=== PATIENT | male | born 1950 | race Caucasian/White ===

== ENCOUNTER → 2020-02-24 14:44 | Outpatient (CLI) | payer MEDICARE, SELFPAY ==
--- NOTE | ~2020-02-24 | XR_ITS ---
EXAMINATION: XR chest 2V DATE: 02/24/2020 15:11 INDICATION: Chest congestion. TECHNIQUE: Frontal and lateral views of the chest were obtained on 4 radiographs. COMPARISON: None. FINDINGS: The chest demonstrates clear lungs without pneumonia, pleural effusion, or pneumothorax. Th e heart size is normal. IMPRESSION: 1. No acute cardiopulmonary disease. Reviewed, dictated and finalized at location B.
== END ==
PROVIDERS: PCP Internal Medicine; Visit Provider Internal Medicine
DX: R09.89 Other specified symptoms and signs involving the circulatory and respiratory systems (principal)
CPT/HCPCS: 71046

== ENCOUNTER → 2021-10-09 13:12 | Outpatient (CLI) | payer MEDICARE, SELFPAY ==
--- NOTE | ~2021-10-09 | XR_ITS ---
XR lumbar spine 2-3V DATE: 10/09/2021 13:44 INDICATION: Back pain TECHNIQUE: AP, lateral, coned lateral lumbosacral views COMPARISON: None FINDINGS: Minimal levoscoliosis of the lumbar spine. There is diffuse osteopenia. There is degenerative spurring of the lower thoracic spine. As mild degenerative disc disease at L1-2 and L2-3. There is moderately severe degenerative disc disease at L3-4, L4-5 and L5-S1. There is degenerative change at the apophyseal joints with associated grade 1 anterolisthesis at L3-4 . No fracture or bone destruction is detected. Included lower thoracic and lumbar pedicles are intact. Normal sacroiliac joints. IMPRESSION: Minimal levoscoliosis of lumbar spine Osteopenia Multilevel degenerative disc disease, most pronounced at L3-4, L4-5 and L5-S1 Degenerative changes of apophyseal joints with associated grade 1 anterolisthesis at L3-4 Reviewed, dictated and finalized at location A. IMPRESSION: Minimal levoscoliosis of lumbar spine Osteopenia Multilevel degenerative disc disease, most pronounced at L3-4, L4-5 and L5-S1 Degenerative changes of apophyseal joints with associated grade 1 anterolisthes is at L3-4
== END ==
PROVIDERS: PCP Internal Medicine; Visit Provider Internal Medicine
DX: M85.88 Other specified disorders of bone density and structure, other site (principal); M51.37 Other intervertebral disc degeneration, lumbosacral region
CPT/HCPCS: 72100

== ENCOUNTER 2023-09-19 13:25 | Outpatient (CLI) | payer MEDICARE, SELFPAY ==
--- NOTE | ~2023-09-19 | CT_ITS ---
EXAMINATION: CT lung screening DATE: 09/19/2023 13:54 INDICATION: Personal history of nicotine dependence, prior smoker with 60 pack year history TECHNIQUE: Computed tomography (CT) of the chest was performed without intravenous contrast. The dose -length product (DLP) was 118.22 mGy-cm. Automated exposure control and iterative reconstruction tech nique were employed. COMPARISON: None FINDINGS: There is moderate emphysema. There are scattered small nodules of the lungs. The largest me asures 2 mm in the left lung apex. The lungs are free of acute opacities. No pleural effusion or pneu mothorax. No pathologically enlarged thoracic lymph nodes are identified. The heart size is normal. C alcified coronary artery atherosclerosis is noted. There is moderate thoracic spondylosis. IMPRESSION: 1. Lung-RADS category 2: Benign appearance or behavior. Continue annual screening with noncontrast lo w-dose chest CT in 12 months. Reviewed, dictated and finalized at location L. TLE BUILDER IMPRESSION: 1. Lung-RADS category 2: Benign appearance or behavior. Continue annual screeni ng with noncontrast low-dose chest CT in 12 months.
== END 2023-09-19 13:26 | disposition home or self-care (01) ==
PROVIDERS: PCP Emergency Medicine; Visit Provider Emergency Medicine
DX: Z12.2 Encounter for screening for malignant neoplasm of respiratory organs (principal); Z87.891 Personal history of nicotine dependence
CPT/HCPCS: 71271

== ENCOUNTER 2024-02-26 13:04 | Outpatient (CLI) | payer MEDICARE, SELFPAY ==
--- NOTE | ~2024-02-26 | MR_ITS ---
EXAMINATION: MR lumbar spine wo con DATE: 02/26/2024 13:35 INDICATION: Low back pain. Right leg pain and numbness. TECHNIQUE: Magnetic resonance imaging (MRI) of the lumbar spine was performed without intravenous con trast. Sequences included sagittal T2-weighted FSE, sagittal T2-weighted FS FSE, sagittal T1-weighted FSE, and axial T2-weighted FSE. COMPARISON: Lumbar spine radiographs 10/09/2021 FINDINGS: There is 7 degrees levocurvature of lumbar spine. There is 4 mm anterolisthesis of L3 on L4 . There is mild chronic anterior wedging of T11, T12, L3, and L4 vertebral bodies. There is mildly de creased disc height at L1-L2 and L2-L3 and severely decreased disc height from L3-L4 through L5-S1. T he distal spinal cord signal intensity is normal. The conus medullaris is at T12. The bladder is deb edly distended. The following disc levels are specifically discussed: L1-L2: The disc is bulging and has an annular fissure. There is severe bilateral facet joint osteoart hritis. There is mild bilateral neural foraminal stenosis. There is mild central canal stenosis. L2-L3: The disc is bulging. There is severe bilateral facet joint osteoarthritis. There is mild bilat eral neural foraminal stenosis. There is mild central canal stenosis. L3-L4: The disc is bulging. There is severe bilateral facet joint osteoarthritis. There is moderate b ilateral neural foraminal stenosis. There is severe central canal stenosis. L4-L5: The disc is bulging and has an annular fissure. There is severe bilateral facet joint osteoart hritis. There is moderate bilateral neural foraminal stenosis. There is mild central canal stenosis. L5-S1: The disc is bulging and has an annular fissure. There is severe bilateral facet joint osteoart hritis. There is moderate bilateral neural foraminal stenosis. There is mild central canal stenosis. IMPRESSION: 1. Severe lumbar spondylosis. Reviewed, dictated and finalized at location A.
== END 2024-02-26 13:05 | disposition home or self-care (01) ==
LOC: ANHIMG 13:07
PROVIDERS: PCP Emergency Medicine; Visit Provider Emergency Medicine
DX: R29.898 Other symptoms and signs involving the musculoskeletal system (principal); M47.896 Other spondylosis, lumbar region
CPT/HCPCS: 72148

== ENCOUNTER 2024-04-01 14:07 | Outpatient (CLI) | payer MEDICARE, SELFPAY | END 2024-04-01 14:08 | disposition home or self-care (01) | LOC: ANHAUDIO 14:07 | PROVIDERS: PCP Emergency Medicine; Visit Provider Nurse Practitioner Family | DX: H90.3 Sensorineural hearing loss, bilateral (principal) | CPT/HCPCS: 92557; 92567 ==

== ENCOUNTER 2024-04-07 14:45 | Outpatient (RCR) | payer MEDICARE, SELFPAY ==
--- NOTE | 2024-03-12 14:26 | OPREHPOC ---
Outpatient Therapy Plan of Care This is a Multidisciplinary Plan of Care that may contain components documented by all disciplines (PT, OT, and ST.) PT Problem 1 PT Problem #1 Knowledge Deficit PT Goal 1 Goal / Goal Update Pt to be IND with issued HEP . Target Visit 4 PT Problem 2 PT Problem #2 Pain PT Goal 1 Goal / Goal Update Pt to report pain no greater than 3/10 in the last week. Target Visit 8 PT Goal 2 Goal / Goal Update Pt to report 75% improvement in overall symptoms. Target Visit 8 PT Problem 3 PT Problem #3 Impaired Gait PT Goal 1 Goal / Goal Update Pt to be able to ambulate around the grocery store without the need for a rest break. Target Visit 8 PT Goal 2 Goal / Goal Update Pt to ambulate with upright trunk posture. Target Visit 8 PT Problem 4 PT Problem #4 Impaired Range of Motion PT Goal 1 Goal / Goal Update Pt to improve passive hip extension ROM to 10 deg to improve stride length Target Visit 8 PT Goal 2 Goal / Goal Update Pt to improve hip int rot ROM to 15 deg Target Visit 10
--- NOTE | 2024-03-12 14:26 | PTOPEVAL1 ---
Assessment and note entered by Ayanna Boyce, PT, DPT Evaluation Information Assessment Status Evaluation Diagnosis lumbar spondylosis ICD-10 Condition Codes (PT) Pain in low back M54.50 Subjective Information Pt states he has at least some degree of back pain every day. He states at times his R leg will go completely numb without an increase in pain. He states when this happens his leg goes numb and it causes him to fall, about 4 times in the last 6 months. He states if he stands or walks for too long his back will start to hurt and he can feel the numbness increase. He states he goes to sit down and this helps to increase the strength and relieve the numbness. Pt has a partial discectomy ~30 years ago. Reported Pain Level Pain Score 6: Self Report Assessment PT Clinical Summary Pt presents to therapy today for his initial evaluation with a diagnosis of lumbar spondylosis. Today he demonstrates decreased lumbar mobility in all directions as well as decreased hip extension and int rot. He demonstrates good LE strength aside from hip abduction, he also has core weakness. Pt ambulates with a flexed hips and trunk hyperextension, likely d/t his limited hip extension ROM. Skilled therapy services are indicated to improve hip and trunk mobility, improve body mechanics, and to improve standing/ walking tolerance. Plan of Care Interventions Electrical Stimulation,Gait Training,Hot Pack/Cold Pack,Manual Therapy,Mechanical Traction,Neuro Re- education,Patient/Caregiver Educati,Therapeutic Activities,Therapeutic Exercise PT Services Indicated Yes Treatment Frequency and 2x/wk for 8 visits Duration These treatments will address the objective and functional deficits as defined above. The patient will be advanced safely and appropriately in order for the patient to progress towards his/her prior level of function. Additional exercises will be introduced and as well as a comprehensive home exercise program upon discharge, if needed, ?to ensure carryover of functional gains achieved in the clinic. This treatment plan has been reviewed and agreement upon by the patient.
--- NOTE | 2024-04-07 15:35 | PTOPDC ---
Assessment and note entered by Ayanna Boyce, PT, DPT Evaluation Information Assessment Status Discharge Diagnosis lumbar spondylosis ICD-10 Condition Codes (PT) Pain in low back M54.50 Subjective Information Pt states standing for too long, walking too far, or bending over all increases his pain. He states he does his exercises, but has been doing them in the evening. He states he is becoming more aware of his positioning when he is bending and twisting . He states changing his position and trying to be aware of his posture does not change his pain. He states his pain at rest is 0/10 and 10/10 at the worst. Reported Pain Level Pain Score 0: Self Report Assessment PT Clinical Summary Pt presents to therapy today for his progress report following 8n visits of skilled therapy to treat his diagnosis of lumbar spondylosis. Today he demonstrates improved hip ROM but still has pain that limited lumbar ROM. He reports minimal improvements with therapy, he states he plans to continue his HEP upon discharge until he gets back into see his doctors. Demonstrates good body mechanics with cueing. Plan of Care PT Services Indicated Yes
== END 2024-04-08 07:49 | disposition home or self-care (01) ==
LOC: ANHGOSHPT 14:45
PROVIDERS: PCP Emergency Medicine; Visit Provider Emergency Medicine
DX: M47.16 Other spondylosis with myelopathy, lumbar region (principal)
CPT/HCPCS: 97110; 97161; 97530

== ENCOUNTER 2024-04-24 13:08 | Outpatient (CLI) | payer MEDICARE, SELFPAY ==
--- NOTE | 2024-04-27 08:54 | WPDPFTINT ---
PFT Procedure Performed PFT Procedure Performed Spirometry with Pre/Post Bronchodilator Plethysmography (Lung Vol) Diffusing Cap (DLCO) Flow Vol Loop PFT Interpretation Lung volumes were measured with the body plethysmography method. Lung volumes are unremarkable. Spirometry showed diminished expiratory flow rates and a diminished FEV1 to FVC ratio 61%, indicative of obstructive airway disease. Following administration of a bronchodilator there was no significant increase in expiratory flow rates. Lung diffusion capacity is mildly reduced at 64% predicted. The diminished lung diffusion capacity coupled with the diminished alveolar volume and a normal DLCO/VA ratio indicates loss of alveolar capillary stricture as seen in emphysema or interstitial lung disease. Impression: Mild obstructive airway disease with no response to bronchodilators on this testing. Mild reduction in lung diffusion capacity.
--- NOTE | 2024-04-27 08:56 | WPDSIXMINUTE ---
Six Minute Walk Procedure Procedure Performed Pulmonary Stress Test (6 min walk) Six Minute Walk Six Minute Walk: This 6 minute walk test was carried out with the patient breathing ambient air. The pre-walk baseline oxyhemoglobin saturation was 97%. The patient walked 357 m with no stops during testing. During the walk the oxyhemoglobin saturation remained in the range of 96% to 97%. Impression: No evidence of oxyhemoglobin desaturation on this testing.
== END 2024-04-24 13:09 | disposition home or self-care (01) ==
LOC: ANHPFT 13:10
PROVIDERS: PCP Emergency Medicine; Visit Provider Physician Assistant
DX: J43.9 Emphysema, unspecified (principal); R94.2 Abnormal results of pulmonary function studies
CPT/HCPCS: 94060; 94618; 94726; 94729

== ENCOUNTER 2024-05-23 11:40 | Emergency (ER) | payer MEDICARE, SELFPAY ==
--- NOTE | ~2024-05-23 | XR_ITS ---
EXAMINATION: XR ribs LT 2V DATE: 05/23/2024 12:23 INDICATION: Left rib pain. Fall. TECHNIQUE: 2 views of the left ribs on 3 radiographs were obtained. COMPARISON: Chest CT 09/19/2023 FINDINGS: There is no left pneumonia, pleural effusion, or pneumothorax. The heart size is normal. Th ere are fractures of left fifth sixth, seventh, eighth, ninth, and 10th ribs. IMPRESSION: 1. Fractures of left sixth-10th ribs. Reviewed, dictated and finalized at location A. USTER
--- NOTE | ~2024-05-23 | XR_ITS ---
EXAMINATION: XR chest 2V DATE: 05/23/2024 12:23 INDICATION: Left rib pain. TECHNIQUE: Frontal and lateral views of the chest were obtained. COMPARISON: Chest CT 09/19/2023 FINDINGS: There is mild atelectasis at right lung base. No pleural effusion or pneumothorax. The hear t is normal. IMPRESSION: 1. Mild atelectasis at right lung base. Reviewed, dictated and finalized at location A.
[2024-05-23 11:49] VITALS: BP 141/97; PULSE 101; RESP 16; TEMP 36.8; O2SAT 98
--- NOTE | 2024-05-23 12:26 | ED.GENADULT ---
HPI - General Adult General Chief complaint: Back Pain/Injury Stated complaint: Left Side Pain Time Seen by Provider: 05/23/24 11:59 Source: patient, RN notes reviewed and old records reviewed Mode of arrival: ambulatory Limitations: no limitations History of Present Illness HPI narrative: 73 year old male who presents to [facility] care accompanied with with complaints of falling off the 2nd rung of ladder onto concrete on his left side with complaints of pain to his left anterior and lateral rib area. Patient reports that he sneezed yesterday and it mad pain travel from his left lower back up his left upper back. Patient reports no shortness of breath, states some increased discomfort with deep breathing and with movements. ladder MD complaint: pain to left anterior and lateral rib area Onset (ago): day(s) (3rd day of symptoms) Severity scale (1-10): 6 Quality: aching, sharp and constant Treatments prior to arrival: NSAID Related Data Home Medications Medication Instructions Recorded Confirmed aspirin 81 mg tablet,delayed 81 mg PO DAILY 03/22/23 05/23/24 release Allergies Allergy/AdvReac Type Severity Reaction Status Date / Time No Known Allergies Allergy Verified 05/23/24 11:51 Review of Systems Review of Systems: CONSTITUTIONAL: Denies fever, chills, or sweats. EYES: Denies visual changes, redness, or discharge. ENT: Denies rhinorrhea, congestion, sore throat, or otalgia. CARDIOVASCULAR: Denies chest pain, palpitations, or edema.reports left anterior and posterior rib pain increases with movement RESPIRATORY: Denies cough or acute dyspnea. GASTROINTESTINAL: Denies abdominal pain, nausea, vomiting, or diarrhea. GENITOURINARY: Denies dysuria or hematuria. SKIN: Denies rash or itching. MUSCULOSKELETAL: Denies acute back pain, joint pain, or myalgia. NEUROLOGIC: Denies headache, numbness, or weakness. PSYCHIATRIC: History of anxiety or depression. All systems reviewed & are unremarkable except as noted in HPI and below [facility] Past Medical History Medical History (Updated 05/24/24 @ 12:08 by Sharon Garcia NP) CAD (coronary artery disease) Chronic back pain Depression Dyslipidemia Emphysema lung Hypertension LBBB (left bundle branch block) Osteoarthritis of both knees Social History Social History Smoking status: Former smoker Tobacco type: cigarettes Smoking end date: 07/14/23 Alcohol intake: never Substance use: former Last use: used gummies but has not since 2021 Do You Feel Safe in your Home?: Yes Lack of Transportation: No Lack of Food: Never True Current Housing: I Have Housing Concerned About Future Housing: No Difficulty Paying Gas/Electric Bills: No Difficulty Paying for Meds: No Currently Unemployed: No Education: High School Diploma/GED Difficulty w/ Childcare or Family Care: No Comments At time of signature, agree with nursing past medical, surgical, social and family history. There is no relevant family history pertinent to the presenting complaint Exam Narrative: GENERAL: Well-appearing, well-nourished, and in some acute distress related to pain. HEAD: Normocephalic, atraumatic. EYES: PERRLA and EOMI. ENT: Nares clear, no rhinorrhea or epistaxis. Mucous membranes moist.TM's normal with throat pink with no lesions or swelling NECK: Supple.no lymphadenopathy CHEST: Clear to auscultation. No respiratory distress. no acute cough SAO2 98% on room air pain to HEART: Regular rate and rhythm. No murmur heard. Normal peripheral pulses.left lower anterior chest and to lateral chest from injury with increased pain with deep breathing and movement ABDOMEN: Soft, nontender, nondistended, normal active bowel sounds. EXTREMITIES: Normal range of motion. No edema. SKIN: Warm, dry, no rash. NEURO: No focal deficits. Alert and oriented x3. Course Course Emergency Course: Patient is aware of diagnosis, understands and agrees to treatment plan.? Anticipatory guidance given.? Patient agrees to follow-up as directed and is aware of reasons to seek care at the emergency department. Portions of this record may have been created with voice recognition software Level of Care: Express Care Visit Vital Signs Vital signs: Vital Signs Temperature 36.8 C 05/23/24 11:49 Pulse Rate 101 H 05/23/24 11:49 Respiratory Rate 16 05/23/24 11:49 Blood Pressure 141/97 H 05/23/24 11:49 Pulse Oximetry 98 05/23/24 11:49 Temperature 36.8 C 05/23/24 11:49 Pulse Rate 101 H 05/23/24 11:49 Respiratory Rate 16 05/23/24 11:49 Blood Pressure 141/97 H 05/23/24 11:49 Pulse Oximetry 98 05/23/24 11:49 Reviewed Medical Decision Making MDM Narrative Medical decision making narrative: Exam findings and imaging show no acute concerns or changes; patient is non-toxic appearing and is in no distress.? Patient is appropriate for outpatient treatment and follow-up Differential Diagnosis Differential Diagnosis: left anterior rib and lateral rib pain, fall off ladder approx 4 feet onto concrete, multiple rib fractures Medical Records Medical records reviewed: Yes I reviewed the external patient's medical records. Vital Signs Vital Signs: Vital Signs Temperature 36.8 C 05/23/24 11:49 Pulse Rate 101 H 05/23/24 11:49 Respiratory Rate 16 05/23/24 11:49 Blood Pressure 141/97 H 05/23/24 11:49 Pulse Oximetry 98 05/23/24 11:49 Temperature 36.8 C 05/23/24 11:49 Pulse Rate 101 H 05/23/24 11:49 Respiratory Rate 16 05/23/24 11:49 Blood Pressure 141/97 H 05/23/24 11:49 Pulse Oximetry 98 05/23/24 11:49 Imaging Data Attestation: I personally reviewed and interpreted this imaging study as follows: My impression: mild atelectasis right lung base, fracture of left 6-10 ribs no pneumothorax Radiologist's impression: [address] [place] [address] XRay Report Signed Patient: Paul Levy : 1950 MR#: [id number] Age: 73 Acct:[id number] Loc: [facility] ADM Date: 05/23/24Attending Dr: Ordering Physician: Sharon Garcia APRN Date of Service: 05/23/24 Procedure(s): XR ribs LT Accession Number(s): [id number] cc: Johnnie Wade MD; Sharon Garcia APRN~ EXAMINATION: XR ribs LT 2V DATE: 05/23/2024 12:23 INDICATION: Left rib pain. Fall. TECHNIQUE: 2 views of the left ribs on 3 radiographs were obtained. COMPARISON: Chest CT 09/19/2023 FINDINGS: There is no left pneumonia, pleural effusion, or pneumothorax. The heart size is normal. There are fractures of left fifth sixth, seventh, eighth, ninth, and 10th ribs. IMPRESSION: 1. Fractures of left sixth-10th ribs. Reviewed, dictated and finalized at location A. GER POOL Dictated By: Genaro Ricci MD 05/23/24 1228 Signed By: <Electronically signed by Genaro Ricci MD in OV> Signed Patient: Paul Levy : 1950 MR#: [id number] Age: 73 Acct:[id number] Loc: [facility] ADM Date: 05/23/24Attending Dr: Ordering Physician: Sharon Garcia APRN Date of Service: 05/23/24 Procedure(s): XR chest 2V Accession Number(s): [id number] cc: Johnnie Wade MD; Sharon Garcia APRN~ EXAMINATION: XR chest 2V DATE: 05/23/2024 12:23 INDICATION: Left rib pain. TECHNIQUE: Frontal and lateral views of the chest were obtained. COMPARISON: Chest CT 09/19/2023 FINDINGS: There is mild atelectasis at right lung base. No pleural effusion or pneumothorax. The heart is normal. IMPRESSION: 1. Mild atelectasis at right lung base. Reviewed, dictated and finalized at location A. GER POOL Dictated By: Genaro Ricci MD 05/23/24 1225 Signed By: <Electronically signed by Gnearo Ricci MD in OV> Critical Care Time Critical Care Time Critical Care Time: No Discharge Plan Discharge Clinical Impression: Multiple rib fractures Patient Disposition: Home, Self-Care Condition: Stable Instructions: Rib Fracture (ED) Additional Instructions: Ice and heat to the area for 20-30 minutes Gentle stretching exercises Gentle massage Use your inhaler as ordered incentive spirometer use as directed Caution with lifting, bending, stooping, twisting Avoid pushing, pulling Anti-inflammatory medicine as directed--Tylenol or Ibuprofen for pain He may take the muscle relaxant and anti-inflammatory at the same time Pain medicine as directed for severe pain--caution drowsiness-no driving or alcohol. If this medicine is a narcotic, you can become constipated. He may want to start a laxative right away. Follow-up with your PCP if not improving in 5-7 days If your symptoms persist, change or worsen significantly before you can contact your personal physician then please, without delay, go to the emergency department for further evaluation. Follow-up with PCP in 7-10 days or sooner if needed Follow up with PCP soon in regards to your blood pressure which is elevated above threshold for referral. Blood pressure above 120/80 may indicate pre-hypertension. 141/97 Prescriptions: New hydrocodone-acetaminophen 5-325 mg tablet 1 tablet PO Q6H PRN (Reason: pain) Qty: 10 0RF No Action albuterol sulfate 90 mcg/actuation HFA aerosol inhaler 1 - 2 puff inhalation Q4-6H PRN (Reason: shortness of breath or wheezing) Qty: 8.5 2RF (DME) inhalational spacing device Spacer See Rx Instructions .ROUTE .MEDSUPPLY Qty: 1 0RF Rx Instructions: As directed aspirin 81 mg tablet,delayed release (DR/EC) 81 mg PO DAILY losartan 50 mg tablet See Rx Instructions .ROUTE .COMPLEX Qty: 90 2RF Dose Instruction: TAKE 1 TABLET BY MOUTH DAILY Rx Instructions: TAKE 1 TABLET BY MOUTH DAILY meloxicam 7.5 mg tablet 7.5 mg PO DAILY Qty: 30 5RF atorvastatin 20 mg tablet See Rx Instructions .ROUTE .COMPLEX Qty: 90 2RF Dose Instruction: TAKE 1 TABLET BY MOUTH DAILY Rx Instructions: TAKE 1 TABLET BY MOUTH DAILY Breztri Aerosphere 160-9-4.8 mcg/actuation HFA aerosol inhaler 2 inh inhalation BID Qty: 10.7 3RF Rx Instructions: Rinse mouth and spit after each use. Follow-up/Referrals: Johnnie Wade MD [Primary Care Provider] - Time of Disposition: 12:52 Quality [place] Coma Scale Eyes: Open Verbal: Oriented and Alert Motor: Follows Commands [place] Coma Total Score: 15
== END 2024-05-23 12:57 | disposition home or self-care (01) ==
PROVIDERS: Emergency Provider Registered Nurse; PCP Emergency Medicine
DX: S22.42XA Multiple fractures of ribs, left side, initial encounter for closed fracture (principal); W11.XXXA Fall on and from ladder, initial encounter; I25.10 Atherosclerotic heart disease of native coronary artery without angina pectoris; I10 Essential (primary) hypertension; E78.5 Hyperlipidemia, unspecified; M17.0 Bilateral primary osteoarthritis of knee; Z87.891 Personal history of nicotine dependence; Z79.82 Long term (current) use of aspirin
CPT/HCPCS: 71046; 71100; 99213; G0463

== ENCOUNTER 2024-10-19 09:46 | Outpatient (CLI) | payer MEDICARE, SELFPAY ==
--- NOTE | ~2024-10-19 | CT_ITS ---
CT Scan of the Chest without Contrast: Clinical Indication: Lung cancer screening, nicotine dependence Technique: Contiguous sections were acquired throughout the chest without intravenous contrast. Dose reduction technique was used on this scan by utilizing automated exposure control and iterative recon struction technique. The dose-length product (DLP) was 109.99 mGy-cm. COMPARISON: 09/19/2023 Findings: There is no evidence of any significant mediastinal, hilar or axillary lymphadenopathy. Coronary mone ry calcifications are present. There is no evidence of pleural or pericardial effusion. The lungs are clear. No pulmonary nodules or infiltrates are noted. Mild emphysema. Images through the upper abdomen reveal no abnormalities. Impression: Lung RADS 1: Negative. 12 month follow-up screening CT advised. Reviewed, dictated and finalized at location . Impression: Lung RADS 1: Negative. 12 month follow-up screening CT advised.
--- OUTSIDE RECORDS SUMMARY | 2024-10-19 11:05 | XMS_ITS | Referral Summary ---
Author Organization [facility] Healthcare Address [address] [place] [address] Care Team Providers Care Drink Waiter Name Role Phone Unknown, Notinfile Primary Care Provider Unavail able Allergies No known active allergies Social History Tobacco Use Types Packs/Day Years Used Date Smoking Tobacco: Never Assessed Personal Safety Answer Date Recorded Getting School Help Needed Not on file 09/14 Sex and Gender Information Value Date Recorded Sex Assigned at Not on file Legal Sex Male 2:42 PM CDT Gender Identity Male 11/06/2022 1:13 PM CDT Sexual Orientation Straight 11/06/2022 1: 13 PM CDT Last Filed Vital Signs Vital Sign Reading Time Taken Comments Blood Pressure 146/83 11/08/2022 11:15 AM CDT Pulse 67 11/08/2022 11:15 AM CDT Temperature - - Respiratory Rate - - Oxygen Saturation - - Inhaled Oxygen Concentration - - Weight - - Height - - Body Mass Index - - Plan of Treatment Not on file Insurance [place] [place] [id number] [employer] MED[employer] Care Teams Drink Waiter Relationship Specialty Start Date End Date Unknown, Notinfile PCP - General 11/08/22
--- OUTSIDE RECORDS SUMMARY | 2024-10-19 11:05 | XMS_ITS | Clinical Summary ---
Author Organization [facility] Healthcare Address [address] [place] [address] Care Team Providers Care Animal Care Supervisor Name Role Phone Unknown, Notinfile Primary Care [...] Mass Index - - Plan of Treatment Health Maintenance Due Date Last Done Comments Colon Cancer Screening-Colonoscopy 1950 Depression Screening 1950 Fall Risk Assessment 1950 Hepatitis C Screening 1950 DTaP/Tdap/Td Vaccine (1 - Tdap) 1960 Hepatitis B Screening 1967 Pneumococcal vaccine 65+ (1 of 1 - PCV) 1999 Zoster Vaccine (1 of 2) 1999 Abdominal Aortic Aneurysm (A AA) Screen 2014 Well Visit 65+ 2014 Covid-19 Vaccine (5 2023-2 5 season) 2024 04/19/2022, 06/02/2021, 10/21/2020, Additional history exists Influenza Vaccine (#1) 2024 04/27/2022, 2019 Insurance [facility] MEDICARE [facility] MEDICARE Care Teams Animal Care Supervisor Relationship Specialty Start Date End Date Unknown, Notinfile PCP - General 11/08/22
--- OUTSIDE RECORDS SUMMARY | 2024-10-19 11:05 | XMS_ITS | Clinical Summary ---
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 Name Role Phone Unavailable Primary Care Provider Unavailabl e Social History Tobacco Use Types Packs/Day Years Used Date Smoking Tobacco: Never Assessed Sex and Gender Information Value Date Recorded Sex Assigned at Not on file Legal Sex Male 7:06 PM CDT Gender Identity Not on file Sexual Orientation Not on file Plan of Treatment Health Maintenance Due Date Last Done Comments Colorectal Cancer Screening Colonoscopy (10 Years) 1949 Hepatitis C 1967 DTaP, Tdap and Td Vaccines ( 1 - Tdap) 1968 Zoster Vaccines (1 of 2) 1999 Pneumococcal Vaccine: 65+ Ye ars (1 of 1 - PCV) 2014 COVID-19 Vaccine ( - 2023-2 5 season) 2024 RSV Immunization or 60+ Years (1 - 1-dose 75+ series) 2024 Meningococcal B Vaccine Aged Out No l onger eligible based on patient's age to complete this topic Meningococcal Vaccine Aged Out No zion elijah eligible based on patient's age to complete this topic RSV Immunizations Under 20 Months Aged Out No longer eligible based on patient's age to complete this topic
== END 2024-10-19 09:47 | disposition home or self-care (01) ==
PROVIDERS: PCP Nurse Practitioner; Visit Provider Physician Assistant
DX: Z12.2 Encounter for screening for malignant neoplasm of respiratory organs (principal); Z87.891 Personal history of nicotine dependence
CPT/HCPCS: 71271

== ENCOUNTER 2025-05-31 12:57 | Outpatient (CLI) | payer MEDICARE, SELFPAY ==
--- NOTE | ~2025-05-31 | MR_ITS ---
EXAMINATION: MR brain/brain stem wo con DATE: 05/31/2025 13:24 INDICATION: Amnesia TECHNIQUE: Magnetic resonance imaging (MRI) of the brain and brainstem was performed without intravenous contrast. Sequences included sagittal and axial T1-weighted SE, axial diffusion-weighted FS SE, axial T2*-weighted GRE, axial T2-weighted FLAIR, and axial T2-weighted FSE. Apparent diffusion coefficient (ADC) maps were created. COMPARISON: None. FINDINGS: There are no areas of restricted diffusion to suggest acute infarction. No intracranial hemorrhage or abnormal intracranial mass lesion. There are no intraparenchymal signal abnormalities seen on the other pulse sequences. The ventricles are symmetric and normal in size. There are no abnormal extra-axial fluid collections. Flow voids are seen in the cerebral arteries on the T2- weighted sequences consistent with their expected patency. Right vertebral artery is dominant. Changes of bilateral intraocular lens replacement. Visualized orbits and soft tissues are unremarkable. Mild mucosal thickening the bilateral ethmoid sinuses. IMPRESSION: 1. Normal for age brain. No acute intracranial process. 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
== END 2025-05-31 12:58 | disposition home or self-care (01) ==
LOC: MICIMG 12:57
PROVIDERS: PCP Nurse Practitioner; Visit Provider Nurse Practitioner
DX: R41.3 Other amnesia (principal)
CPT/HCPCS: 70551